=== PATIENT | female | born 1980 | race African-American/Black ===

== ENCOUNTER 2020-04-01 12:04 | Emergency (ER) | payer OTHER, SELFPAY ==
--- NOTE | ~2020-04-01 | XR_ITS ---
EXAMINATION: XR foot LT min 3V EXAM DATE: 04/01/2020 12:29 INDICATION: pain to medial of lt foot . TECHNIQUE: Left foot dorsoplantar, lateral and oblique projections obtained and reviewed. There is n o prior study for comparison. FINDINGS: Left metatarsal bones unremarkable. Small calcaneal spurs. There is hallux valgus. There are no bony erosions identified. There are no acute fractures or dislocations identified. There is no subcutaneous gas. The soft tissue is unremarkable. There are no radiopaque foreign bodies. IMPRESSION: Hallux valgus. Reviewed, dictated and finalized at location B. DRAWER IMPRESSION: Hallux valgus.
--- NOTE | 2020-04-01 12:09 | ED.GENADULT ---
HPI - General Adult General Chief complaint: Extremity Injury, Lower Stated complaint: Left ankle Pain Time Seen by Provider: 04/01/20 12:09 Source: patient Mode of arrival: ambulatory Limitations: no limitations History of Present Illness HPI narrative: 39-year-old female patient presents to the [facility] of the [facility] with complaints of left foot pain that started yesterday morning when she woke up. Patient denies any injury that she is aware of. 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 Patient states she has been taking some anti-inflammatories to help with the pain. Patient states that the pain at rest was 4 out of 10 and with weightbearing she reports 10 out of 10. Denies any numbness or tingling to the foot. Related Data Home Medications Medication Instructions Recorded Confirmed indomethacin [Indocin] 50 mg PO Q6-12H 04/01/20 04/01/20 norethindrone-e.estradiol-iron [Lo 1 tablet PO DAILY 04/01/20 04/01/20 Loestrin Fe] Allergies Allergy/AdvReac Type Severity Reaction Status Date / Time No Known Drug Allergies Allergy Verified 04/01/20 12:18 Review of Systems Review of Systems: Narrative: CONSTITUTIONAL: Denies fever, chills, or sweats. EYES: Denies visual changes, redness, or discharge. ENT: Denies rhinorrhea, congestion, sore throat, or otalgia. CARDIOVASCULAR: Denies chest pain, palpitations, or edema. RESPIRATORY: Denies cough or dyspnea. GASTROINTESTINAL: Denies abdominal pain, nausea, vomiting, or diarrhea. GENITOURINARY: Denies dysuria or hematuria. SKIN: Denies rash or itching. MUSCULOSKELETAL: Denies back pain, joint pain, or myalgia. Positive left foot pain since yesterday morning NEUROLOGIC: Denies headache, numbness, or weakness. PSYCHIATRIC: Denies anxiety or depression. [facility] Past Medical History Medical History (Updated 04/01/20 @ 12:42 by HILTON Resendiz) Asthma Surgical History Surgical History (Updated 04/01/20 @ 12:11 by HILTON Resendiz) History of Hx of tonsillectomy Social History Social History Gender identity (if verbalized by the patient): Female Comments At the time of my signature I agree with nursing past medical history, surgical, social, and family history. There is no relevant family history pertinent to the presenting complaint. Exam Narrative: Exam Narrative: GENERAL: Well-appearing, well-nourished, and in no acute distress. HEAD: Normocephalic, atraumatic. EYES: PERRLA and EOMI. ENT: Nares clear, no rhinorrhea or epistaxis. Mucous membranes moist. NECK: Supple. No lymphadenopathy CHEST: Clear to auscultation. No respiratory distress. HEART: Regular rate and rhythm. No murmur heard. Normal peripheral pulses. ABDOMEN: Soft, nontender, nondistended, normal active bowel sounds. EXTREMITIES: Patient able to bear weight and ambulate but does have increased pain to left foot. No surface trauma, ecchymosis, erythema, lesions, ulcers or break in skin integrity. The L foot is without obvious asymmetry or deformity when compared to the R foot. No bony step-off, nontender to palpation over the toes, midfoot or hindfoot or sole. Patient does have tenderness on palpation to the medial side of the left foot. Pain with plantar/dorsiflexion, and pain with inversion/eversion. Distal motor and neurovascular status are intact SKIN: Warm, dry, no rash. NEURO: No focal deficits. Alert and oriented x3. Course Reevaluation(s) Reevaluation #1: Reevaluated patient after her x-ray resulted. Notify patient that the x-ray does show a calcaneal spur as well as a bunion but no acute fractures or injuries noted at this time. Discussed with her that definitely being on her feet a lot can aggravate the spur as well as the bunion. Informed patient that I encouraged her to continue wearing her brace taking medicine for the pain and try and stay off of it as much as possible for the time be
[2020-04-01 12:14] VITALS: BP 155/88; PULSE 74; RESP 16; TEMP 37.2; O2SAT 100
== END 2020-04-01 12:45 | disposition home or self-care (01) ==
PROVIDERS: Emergency Provider Nurse Practitioner Family; PCP Internal Medicine Infectious Disease
DX: M77.32 Calcaneal spur, left foot (principal); M21.612 Bunion of left foot; J45.909 Unspecified asthma, uncomplicated
CPT/HCPCS: 73630; 99213; G0463

== ENCOUNTER → 2021-02-16 12:07 | Outpatient (CLI) | payer OTHER, SELFPAY ==
--- NOTE | ~2021-02-16 | US_ITS ---
EXAMINATION: US transvaginal DATE: 02/16/2021 12:32 INDICATION: Excessive and frequent menstruation with regular cycle. TECHNIQUE: Multiple transvaginal sonographic images of the pelvis were obtained. COMPARISON: Ultrasound pelvis 08/16/2018 FINDINGS: The uterus measures 6.6 x 6.1 x 7.6 cm. There is no free fluid in the pelvis. The endometrial complex measures 3 mm in thickness. There is a 4.3 cm intramural fibroid in the uterine fundus. The right ov ted is not visualized. The left ovary measures 2.7 x 1.6 x 2.4 cm. IMPRESSION: 1. Uterine fibroid. Reviewed, dictated and finalized at location A. IMPRESSION: 1. Uterine fibroid.
== END ==
PROVIDERS: PCP Internal Medicine Infectious Disease; Visit Provider Obstetrics & Gynecology
DX: N92.0 Excessive and frequent menstruation with regular cycle (principal); D25.9 Leiomyoma of uterus, unspecified
CPT/HCPCS: 76830

== ENCOUNTER 2021-03-02 10:08 | Outpatient (CLI) | payer OTHER, SELFPAY ==
[2021-03-02 10:59] LABS: Hematocrit 32.7 % (37.0-47.0); Hemoglobin 9.9 g/dL (12.0-15.0)
== END 2021-03-02 10:09 | disposition home or self-care (01) ==
LOC: ANHSURGERY 10:11
PROVIDERS: Anesthesiology; PCP Internal Medicine Infectious Disease; Visit Provider Obstetrics & Gynecology
DX: Z01.818 Encounter for other preprocedural examination (principal); N92.0 Excessive and frequent menstruation with regular cycle; D64.9 Anemia, unspecified
CPT/HCPCS: 36415; 85014; 85018; 86850; 86900; 86901

== ENCOUNTER 2021-03-06 01:09 | Day surgery (SDC) | payer OTHER, SELFPAY ==
[2021-02-27 13:51] VITALS: BMI 37.8
[2021-03-06] VITALS (10 sets, daily range): BP systolic 107–143; BP diastolic 64–82; PULSE 61–86; RESP 14–18; TEMP 36.2–36.7; O2SAT 91–100
--- NOTE | 2021-03-06 09:15 | PM.IMHP ---
H&P: HPI History of Present Illness Date/Time: 03/06/21 09:15 40 y/o A1 presented to the office with history of heavy painful cycles. patient tried IUD in the past which she felt cycles were still heavy. recently tried control for 8 months with no relief. Recent HGb 8.6 2 months ago and ultrasound uterine fibroid. Chief Complaint: heavy cylcles PMFSH Past Medical History Medical History (Updated 03/06/21 @ 09:25 by Miguel Keith MD) Asthma Menorrhagia Surgical History Surgical History History of Hx of tonsillectomy Family History Family History (Updated 03/06/21 @ 09:23 by Miguel Keith MD) Mother Hypertension Diabetes mellitus Heart disease Social History Social History Smoking status: Never smoker Alcohol intake: never Substance use: never Substance use type: does not use Living arrangements: with family Additional living arrangements comments: CHILDREN Gender identity (if verbalized by the patient): Female Spiritual care concerns: No Meds Home Medications and Allergies Home Medications Medication Instructions Recorded Confirmed Type cetirizine [Zyrtec] 10 mg PO DAILY 02/27/21 02/27/21 History ferrous sulfate [Iron (ferrous 325 mg PO DAILY 02/27/21 02/27/21 History sulfate)] Allergies Allergy/AdvReac Type Severity Reaction Status Date / Time No Known Allergies Allergy Verified 02/27/21 14:03 Exam Const: General: healthy appearing Nutritional Appearance: obese Orientation/consciousness: patient oriented x3 Resp: Effort & Inspection: normal respiratory effort Auscultation: clear to auscultation bilaterally Cardio: Rate: regular rate Rhythm: regular rhythm : External Female Exam: normal external appearance Speculum Exam - Cervix: normal appearance of the cervix Bimanual exam- vagina & uterus: enlarged Bimanual Exam- Adnexa, other: normal adnexae Assessment and Plan Assessment and plan (1) Menorrhagia: Code(s): N92.0 - Excessive and frequent menstruation with regular cycle Status: Acute Assessment and Plan: Scheduled for a laparoscopic assisted vaginal hysterectomy. Risk and benefits reviewed in detail with patient.
[2021-03-06] MEDS: ACETAMINOPHEN 500 MG TABLET 1000 MG PO (10:50)
[2021-03-06] MEDS: LACTATED RINGERS 1,000 ML 30 ML IV CONT ×2 (11:00→14:57)
--- NOTE | 2021-03-06 11:08 | WPDANESEPPF ---
Anes - Initial Pre Proc Eval Procedure: Operation Date: 03/06/21 12:00 Proposed Procedures p Laparoscopic Assisted Vaginal Hysterectomy - Miguel Keith MD Date/Time: 03/06/21 11:08 Surgeon: Miguel Keith MD Pre Op Diagnosis: Menorrhagia Patient Data Age: 40 Gender: F Height: 1.52 m Weight: 88 kg Allergies Allergy/AdvReac Type Severity Reaction Status Date / Time No Known Allergies Allergy Verified 02/27/21 14:03 Home Medications Medication Instructions Recorded Confirmed Type cetirizine [Zyrtec] 10 mg PO DAILY 02/27/21 02/27/21 History ferrous sulfate [Iron (ferrous 325 mg PO DAILY 02/27/21 02/27/21 History sulfate)] Patient hx anesthesia problems: none Family hx anesthesia problems: none Results Review: All pre-operative results and documents have been reviewed as part of the pre-operative evaluation. [facility] Past Medical History Medical History (Updated 03/06/21 @ 09:25 by Miguel Keith MD) Asthma Menorrhagia Surgical History Surgical History History of Hx of tonsillectomy Family History Family History (Updated 03/06/21 @ 09:23 by Miguel Keith MD) Mother Hypertension Diabetes mellitus Heart disease Social History Social History Smoking status: Never smoker Alcohol intake: never Substance use: never Substance use type: does not use Living arrangements: with family Additional living arrangements comments: CHILDREN Gender identity (if verbalized by the patient): Female Spiritual care concerns: No Anes - Eval Final PreProcedure Day of Procedure 03/06/21 11:08 Patient weight: obese Heart: regular rate and rhythm Lungs: clear to auscultation and normal air movement Airway: Mallampati scale class II Neurological: alert and oriented Last oral intake: >/= 8 hours ASA classification: II Emergent: no Anesthetic plan: proceed Anesthesia type and monitoring: general ETT and standard monitoring Results Review: All pre-operative results and documents have been reviewed as part of the pre-operative evaluation. Informed Consent: The patient's anesthetic plan and its attendant risks and benefits were discussed with the patient/family/POA. Questions were solicited and answers provided to the satisfaction of the patient/family/POA.
[2021-03-06] MEDS: KETOROLAC 15 MG/ML VIAL (*BKC) IV PUSH (11:10)
--- NOTE | 2021-03-06 11:43 | WPDHPUPDATE1 ---
History and Physical Update Update Date/Time: 03/06/21 11:43 History and Physical has been reviewed, including an updated exam of the patient. There are NO changes in the patient's condition. Risks, benefits, and alternatives have been discussed and questions answered. Patient agrees to proceed with procedure.
--- NOTE | 2021-03-06 11:44 | WPDHPUPDATE1 ---
History and Physical Update Update Date/Time: 03/06/21 11:44 History and Physical has been reviewed, including an updated exam of the patient. There are NO changes in the patient's condition. Risks, benefits, and alternatives have been discussed and questions answered. Patient agrees to proceed with procedure.
[2021-03-06 12:00] LABS: Beta HCG Quantitative < 2.39 mIU/ML
[2021-03-06] MEDS: ceFAZolin 2 GM/D5W 50 ML 2 GM/50 ML BAG IVPB (12:13)
[2021-03-06] MEDS: LIDO 1%/EPINEPHRINE 1:100,000 50 ML VIAL 30 ML INFILTRATE (13:08)
[2021-03-06] MEDS: fentaNYL CITRATE INJ (*CRX) 100 MCG/2 ML VIAL 25 MCG IV PUSH ×2 (15:36→15:39)
[2021-03-06] MEDS: DEXTROSE 5%/0.45% SOD CHL 1,000 ML 125 ML IV CONT (18:10)
[2021-03-06] MEDS: KETOROLAC 30 MG/ML VIAL (*BKC) IV PUSH (18:11)
[2021-03-06] MEDS: HYDROcodone/acetaminophen (*CRX) 5-325 MG TABLET 1 TAB PO (21:08)
[2021-03-06] MEDS: SENNA/DOCUSATE SODIUM TABLET 2 TAB PO (21:08)
[2021-03-07] MEDS: IBUPROFEN 600 MG TABLET PO ×2 (03:54→11:17)
[2021-03-07 04:00] VITALS: BP 111/63; PULSE 73; RESP 16; TEMP 36.9; O2SAT 100
[2021-03-07 04:09] LABS: Basophils Percent Auto 0.1 % (0.2-1.2); Hematocrit 28.7 % (37.0-47.0); Hemoglobin 8.9 g/dL (12.0-15.0); Immature Granulocyte Absolute 0.07 K/mm3 (0.00-0.031); Immature Granulocyte Percent A 0.4 % (0-0.5); Lymphocytes Absolute Auto 1.56 K/mm3 (0.9-3.2); Mean Corpuscular Hemoglobin 25.6 pg (26-34); Mean Corpuscular Volume 82.7 fl (80-100); Mean Platelet Volume 10.6 fl (7.4-10.4); Monocytes Absolute Auto 1.1 K/mm3 (0.1-0.6); Monocytes Percent Auto 6.8 % (2.6-8.5); Neutrophils Absolute Auto 12.9 K/mm3 (1.3-6.7); Neutrophils Percent Auto 82.7 % (45.5-73.1); Platelet Count Result 354 k/mm3 (150-375); Red Blood Count 3.47 M/mm3 (4.2-5.4); Red Cell Distribution Width 15.9 % (11.5-14.5); White Blood Count 15.6 K/mm3 (4.5-10.0)
[2021-03-07 04:23] LABS: Anion Gap 8 mmol/L (8-16); Blood Urea Nitrogen 10 mg/dL (7-17); Calcium 9.1 mg/dL (8.4-10.2); Carbon Dioxide 25 mmol/L (22-30); Chloride 104 mmol/L (98-107); Estimated CRCL calculation 101 ml/min; Estimated Glomerular Filt Rate > 60; Glucose 119 mg/dL (65-110); Potassium 4.1 mmol/L (3.4-5.0); Sodium 137 mmol/L (137-145)
[2021-03-07 10:00] VITALS: BP 126/81; PULSE 68; RESP 16; TEMP 36.8
--- NOTE | 2021-03-07 11:38 | PM.GYNPNOP ---
INFORMATION AND DATA ARCHITECT ANALYST - A/P Assessment and plan (1) Menorrhagia: Code(s): N92.0 - Excessive and frequent menstruation with regular cycle Status: Acute Assessment and Plan: s/p LAVH pain well controlled ambulating well d/c home. Postoperative Procedures: Procedures Operation Date: 03/06/21 12:00 Actual Procedure Side Surgeon p Laparoscopic Assisted Vaginal Hysterectomy Miguel Keith MD Time Spent With Patient Time: Total time spent is greater than 50% in coordination of care (as documented) at patient's floor/unit and/or counseling patient: Time with patient: less than 15 minutes INFORMATION AND DATA ARCHITECT ANALYST- PN:Subj Post-Op Subjective Date/time seen: 03/07/21 11:38 Patient reports doing okay no complaints. Exam GI: Other: inc: c/d/i soft nontender. INFORMATION AND DATA ARCHITECT ANALYST - PN: Obj Data Vital Signs Vital Signs: Vital Signs - 24 hr 03/06/21 14:57 03/06/21 15:10 03/06/21 15:25 Temperature 36.2 C L Pulse Rate 75 67 61 Respiratory Rate 16 18 18 Blood Pressure 107/69 130/79 135/82 Pulse Oximetry 100 100 100 03/06/21 15:40 03/06/21 15:55 03/06/21 16:10 Temperature 36.2 C L Pulse Rate 62 69 67 Respiratory Rate 14 16 16 Blood Pressure 135/70 123/69 131/75 Pulse Oximetry 100 91 93 03/06/21 16:30 03/06/21 19:10 03/06/21 23:50 Temperature 36.4 C 36.4 C 36.7 C Pulse Rate 67 74 77 Respiratory Rate 16 16 16 Blood Pressure 139/70 124/72 109/64 Pulse Oximetry 95 100 100 03/07/21 04:00 Temperature 36.9 C Pulse Rate 73 Respiratory Rate 16 Blood Pressure 111/63 Pulse Oximetry 100 Intake/Output Intake/Output: Intake & Output 03/04/21 03/05/21 03/06/21 03/07/21 23:59 23:59 23:59 23:59 Intake Total 1374 400 Output Total 1210 500 Balance 164 -100 Meds/Results Medications: Active Medications Generic Name Dose Route Start Last Admin Trade Name Freq PRN Reason Stop Dose Admin Hydrocodone Bitart/Acetaminophen 1 tab 03/06/21 14:46 03/06/21 21:08 Hydrocodone/Acetaminophen (*Crx) 5-325 Mg Tablet PO 1 tab Q3H PRN Administration Pain Rated 5 or Less Hydrocodone Bitart/Acetaminophen 1 tab 03/06/21 14:46 Hydrocodone/Acetaminophen (*Crx) 10-325 Mg Tablet PO Q3H PRN Pain Rated 6 or Greater Ibuprofen 600 mg 03/06/21 14:46 03/07/21 11:17 Ibuprofen 600 Mg Tablet PO 600 mg Q6H PRN Administration Cramping Ketorolac Tromethamine 30 mg 03/06/21 14:46 03/06/21 18:11 Ketorolac 30 Mg/Ml Vial (*Bkc) IV PUSH 03/11/21 14:45 30 mg Q6H PRN Administration Pain Rated 4-6 Morphine Sulfate 4 mg 03/06/21 14:46 Morphine Sulfate (*Crx) 4 Mg/Ml Inj IV PUSH Q4H PRN Severe breakthrough pain Naloxone HCl 0.1 mg 03/06/21 14:46 Naloxone Hcl 0.4 Mg/Ml Vial IV PUSH Q2M PRN Respiratory rate less than 10 Ondansetron HCl 4 mg 03/06/21 14:46 Ondansetron Inj 4 Mg/2 Ml Vial IV PUSH Q6H PRN Nausea And Vomiting Senna/Docusate Sodium 2 tab 03/06/21 21:00 03/06/21 21:08 Senna/Docusate Sodium Tablet PO 2 tab HS ASHER Administration Simethicone 80 mg 03/06/21 14:46 Simethicone 80 Mg Tab.Chew PO Q2H PRN Gas Labs CBC & Chem 7: 03/07/21 03:51 03/07/21 03:51 Labs: Laboratory Results - last 24 hr 03/06/21 03/07/21 03/07/21 10:52 03:51 03:51 WBC 15.6 H RBC 3.47 L Hgb 8.9 L Hct 28.7 L MCV 82.7 MCH 25.6 L MCHC 31.0 L RDW 15.9 H Plt Count 354 MPV 10.6 H Immature Gran % (Auto) 0.4 Neut % (Auto) 82.7 H Lymph % (Auto) 10.0 L Laurel % (Auto) 6.8 Eos % (Auto) 0.0 Baso % (Auto) 0.1 L Lymph # (Auto) 1.56 Laurel # (Auto) 1.1 H Eos # (Auto) 0.0 Baso # (Auto) 0.0 Abs Immat Gran (auto) 0.07 H Absolute Neuts (auto) 12.9 H Absolute Nucleated RBC 0.0 Nucleated RBC % 0.0 Sodium 137 Potassium 4.1 Chloride 104 Carbon Dioxide 25 Anion Gap 8 BUN 10 Creatinine 0.60 L Estim Creat Clear Calc 101 Estimated
--- NOTE | 2021-03-07 11:44 | P.OP_ITS ---
Procedure Note - Detailed Date of Procedure 03/07/21 Pre-op Diagnosis Menorrhagia Post-op Diagnosis same Procedure Performed [facility] Surgeon Miguel Keith MD Anesthesia general Description of Procedure After anesthesia was found be adequate patient was placed in dorsal lithotomy position prepped and draped in usual manner for laparoscopic procedure. A speculum was placed the vagina. A single-tooth tenaculum was utilized to grasp the anterior lip of the cervix. The uterus was sounded to 10cm. A uterine ma nipulator was placed into the cervix. Garcia was already in place. The speculum was removed attention was then turned to the abdomen. 5Cc of lidocaine with epi was injected in the infraumbilical fold in a horizontal incision was made through which a Veress needle was inserted into the abdominal cavity. Aspiration was negative therefore the abdomen was insufflated with carbon dioxide. After adequate insufflation Veress needle was removed and a 5mm trocar was introduced through the umbilical fold under direct visualization with the scope. Mild arm minimal adhesions were noted to the abdominal wall from the peritoneum in the uterus. A 5mm skin incision was made and a 5mm trocar was introduced into the abdomen for instrumentation on the right and left side of the abdomen. Evaluation of the pelvis revealed a body enlarged and irregular shaped uterus. The fallopian tubes and ovaries appeared normally vaginally and the cul-de-sac was clear the ureters were noted to be deep in the pelvis at this time the right cornu was grasped and the right ovarian uterine ligament round ligaments were doubly clamped doubly coagulated with the Harmonic scalpel. Same procedure was performed on the left with doubly clamping the uterine ovarian ligament round ligaments. The bladder flap was created with blunt and coagulation dissection. The remainder of the uterine vessels and anterior and posterior leaves of the broad ligament and away and transected and coagulated in a serial fashion down to the uterine arteries. The surgery was then turned to the vagina. In which a weighted speculum was placed into the vagina and the anterior and posterior lip of the cervix was grasped with single-tooth tenaculum. The cervix was injected circumferentially with 1% lidocaine with epinephrine. And a circumferential incision was made in the vaginal tissue. The posterior cul-de-sac was entered with sharp and blunt dissection. And a longer weighted speculum was placed into the vagina. The bladder or anterior portion of the vagina was then dissected off the cervix. The right uterosacral ligament was clamped transected and suture ligated with 0 Vicryl suture. The left uterosacral ligament was also clamped and transected with 0 Vicryl suture. The parametrial tissue and the uterine arteries were clamped transected and suture ligated with 0 Vicryl suture. The uterus was removed from the vagina. The pedicles were examined for hemostasis the vaginal close was then closed in a running locked fashion with 0 Vicryl suture with also closing the uterosacral ligaments in the center. Vagina was packed attention was then turned to the abdomen again and reinsufflated hemostasis was noted at the pedicles. The trocars were removed and all gas was escaped from the abdomen and the incisions were closed with 4 Vicryl suture. Sponge lap and needle counts were correct x2 patient tolerated this procedure well. patient was taken to recovery room in stable condition. Estimated Blood Loss -125.0 Urine Output 100
== END 2021-03-07 12:03 | disposition home or self-care (01) ==
LOC: ANHSURGERY 10:06 → ANHOB2 18:59
PROVIDERS: PCP Internal Medicine Infectious Disease; Visit Provider Obstetrics & Gynecology
PROC: 0UT9FZZ Resection of Uterus, Via Natural or Artificial Opening With Percutaneous Endoscopic Assistance (ICD-10-PCS; CPT 58552; principal; 2021-03-06 12:00)
DX: D25.1 Intramural leiomyoma of uterus (principal); D25.2 Subserosal leiomyoma of uterus; J45.909 Unspecified asthma, uncomplicated; E66.9 Obesity, unspecified; Z68.37 Body mass index [BMI] 37.0-37.9, adult
CPT/HCPCS: 58552; 36415; 80048; 84702; 85014; 85018; 85025; 86850; 86900; 86901; 88307; 99199; A9270; J0690; J1100; J1170; J1885; J2250; J2405; J3010; J7030; J7120

== ENCOUNTER 2023-07-29 14:55 | Outpatient (CLI) | payer OTHER, SELFPAY ==
--- NOTE | ~2023-07-29 | US_ITS ---
EXAMINATION: US pelvic complete w TV DATE: 07/29/2023 15:21 INDICATION: Pelvic and perineal pain on the left Comparison:Ultrasound dated 02/16/2021 TECHNIQUE: Multiple transabdominal and endovaginal sonographic images of the pelvis performed. FINDINGS: The uterus is surgically absent. The right ovary measures 3.3 x 1.5 x 2.5 cm and the left ovary measures 3.2 x 2.2 x 2 cm. There is a hypoechoic mass inferior to the right ovary measuring 2.4 x 2 x 1.0 cm. Normal doppler signal in both ovaries. There is no free fluid in the pelvis. There are no abnormal masses seen on either side. IMPRESSION: 1. Hypoechoic mass inferior to the right ovary measured 2.4 cm. Differential diagnosis includes bowel , lymphadenopathy, endometrioma and complicated peritoneal inclusion cyst. Recommend correlation with contrast-enhanced CT abdomen and pelvis. Reviewed, dictated and finalized at location A. IMPRESSION: 1. Hypoechoic mass inferior to the right ovary measured 2.4 cm. Differential di agnosis includes bowel, lymphadenopathy, endometrioma and complicated peritonea l inclusion cyst. Recommend correlation with contrast-enhanced CT abdomen and p susy.
== END 2023-07-29 14:56 ==
PROVIDERS: PCP Obstetrics & Gynecology; Visit Provider Obstetrics & Gynecology
DX: N83.291 Other ovarian cyst, right side (principal)
CPT/HCPCS: 76830; 76856

== ENCOUNTER 2024-02-18 18:02 | Emergency (ER) | payer OTHER, SELFPAY ==
[2024-02-18 18:10] VITALS: BP 151/78; PULSE 112; RESP 20; TEMP 39; O2SAT 100
[2024-02-18 18:28] VITALS: TEMP 39
[2024-02-18] MEDS: ACETAMINOPHEN 500 MG TABLET 1000 MG PO (18:28)
[2024-02-18 18:40] LABS: EDSTREPNEGPOS1 Negative (Negative)
--- NOTE | 2024-02-18 18:59 | ED.URI ---
HPI - URI/Sore Throat General Chief Complaint: Upper Respiratory Infection Stated Complaint: Sore Throat/Sinus Time Seen by Provider: 02/18/24 18:59 Source: patient Mode of arrival: ambulatory Limitations: no limitations History of Present Illness HPI Narrative: 43-year-old female presents with complaint of nasal congestion, postnasal drainage, cough, sinus pressure for approximately Two weeks. Symptoms worse past 3 days. Fever today. Taking [id number] and sinus medication to treat symptoms. Patient reports sore throat is her worst symptom. Denies nausea vomiting. No strep exposure. All systems reviewed and negative except as noted above. Related Data Home Medications Medication Instructions Recorded Confirmed cetirizine 10 mg tablet (Zyrtec) 10 mg PO DAILY 02/27/21 02/18/24 albuterol 90 mcg/actuation aerosol 90 mcg inhalation Q4-5H 02/18/24 02/18/24 inhaler fluticasone furoate 200 1 inh inhalation DAILY 02/18/24 02/18/24 mcg-vilanterol 25 mcg/dose inhalation powder (Breo Ellipta) Allergies Allergy/AdvReac Type Severity Reaction Status Date / Time No Known Allergies Allergy Verified 02/18/24 18:15 Review of Systems Review of Systems: CONSTITUTIONAL: reports fever, chills, or sweats. EYES: Denies visual changes, redness, or discharge. ENT: Reports rhinorrhea, congestion, sore throat. Denies otalgia. CARDIOVASCULAR: Denies chest pain, palpitations, or edema. RESPIRATORY: reports cough . Denies dyspnea. GASTROINTESTINAL: Denies abdominal pain, nausea, vomiting, or diarrhea. GENITOURINARY: Denies dysuria or hematuria. SKIN: Denies rash or itching. MUSCULOSKELETAL: Denies back pain, joint pain. Reports myalgia. NEUROLOGIC: Denies headache, numbness, or weakness. PSYCHIATRIC: Denies anxiety or depression. All other systems reviewed are negative, except as documented in HPI. [facility] Past Medical History Medical History (Updated 02/18/24 @ 19:03 by Paris Parker NP) Asthma Menorrhagia Surgical History Surgical History History of Hx of tonsillectomy Family History Family History (Updated 03/06/21 @ 09:23 by Miguel Keith MD) Mother Hypertension Diabetes mellitus Heart disease Social History Social History Smoking status: Never smoker Alcohol intake: never Substance use: never Substance use type: does not use Living arrangements: with family Additional living arrangements comments: CHILDREN Gender identity (if verbalized by the patient): Female Spiritual care concerns: No Comments At time of signature, agree with nursing past medical, surgical, social and family history. There is no relevant family history pertinent to the presenting complaint. Exam Narrative: GENERAL: This is a well-nourished, well-developed patient, patient ill-appearing but in no acute distress HEAD: normocephalic, atraumatic. EYES: PERRL. Sclera clear/white. Vision is grossly intact. EARS: External ears normal, auditory canals clear and without drainage, TMs normal without perforation. Hearing grossly intact. NOSE: External nose normal with purulent nasal drainage. Frontal and maxillary sinus tenderness on palpation THROAT: Mucous membranes moist, erythema, swelling, postnasal drainage NECK: Neck supple,tender with anterior cervical lymphadenopathy. No masses or thyromegaly. CARDIOVASCULAR: Regular rate and rhythm without murmurs, gallops, or rubs. RESPIRATORY: Clear to auscultation. Breath sounds equal bilaterally. No wheezes, rales, or rhonchi. SKIN: warm, Dry, intact with no suspicious lesions or rash, good texture and turgor. NEURO: awake, alert, and oriented to person, place and time. There were no obvious focal neurologic abnormalities. EXTREMITIES: No joint tenderness, effusion, or edema noted. Course Course Level of Care: Express
[2024-02-18 19:05] VITALS: TEMP 38.4
== END 2024-02-18 19:10 | disposition home or self-care (01) ==
PROVIDERS: Emergency Provider Nurse Practitioner Family; PCP Internal Medicine Infectious Disease
DX: J01.90 Acute sinusitis, unspecified (principal); B96.89 Other specified bacterial agents as the cause of diseases classified elsewhere
CPT/HCPCS: 87081; 87880; 99213; A9270; G0463